=== PATIENT | male | born 1955 | race African-American/Black ===

== ENCOUNTER 2023-02-25 02:31 | Emergency (ER) | payer MEDICAID, MEDICARE ==
[2023-02-25] MEDS ORDERED: Acetaminophen 500 MG TAB ONE (03:00)
[2023-02-25] MEDS ORDERED: Metoclopramide 10 MG/10 ML UDCUP ONE (03:00)
[2023-02-25] MEDS ORDERED: Metoclopramide HCl 10 MG/2 ML VIAL ONE (03:01)
[2023-02-25 03:07] LABS: #Monocytes 0.2 thou/uL (0.11-0.59); #Neutrophils 8.7 thou/uL (1.40-6.50); %Basophils 0.1 % (0.0-1.0); %Lymphocytes 6.2 % (21.0-51.0); %Monocytes 2.1 % (0.0-10.0); %Neutrophils 91.2 % (42.0-75.0); Hematocrit 42.8 % (42.0-52.0); Hemoglobin 14.5 g/dL (14.0-18.0); Mean Corpuscular HGB CONC 33.9 g/dL (32.0-36.0); Mean Corpuscular Hemoglobin 33.7 pg (27.0-31.0); Mean Corpuscular Volume 99.5 fl (78.0-98.0); Mean Platelet Volume 9.2 fL (7.4-10.4); Platelet Count 290 10x3/uL (130-400); RBC Distribution Width 12.6 % (11.5-14.5); White Blood Cell (WBC) Count 9.5 10x3/uL (4.8-10.8)
[2023-02-25 03:43] LABS: SARS-CoV-2 NAA Rapid Test Not Detected (NotDetected)
[2023-02-25 04:01] LABS: Troponin I Less than 0.010 ng/mL (< 0.028)
[2023-02-25 04:03] LABS: Anion Gap 16 mmol/L (10-20); BUN (Urea Nitrogen) 15 mg/dL (8.4-25.7); Calc. Creatinine Clearance 0 mL/min (70-130); Calcium 9.4 mg/dL (7.6-10.4); Carbon Dioxide 22 mmol/L (23-31); Chloride 103 mmol/L (98-107); Estimated GFR 91; Glucose 211 mg/dL (80-115); Potassium 3.6 mmol/L (3.5-5.1); Sodium 137 mmol/L (136-145)
[2023-02-25 04:04] LABS: ALT (SGPT) 25 U/L (8-55); AST (SGOT) 18 U/L (5-34); Albumin 3.9 g/dL (3.4-4.8); Alkaline Phosphatase 58 U/L (40-110); Bilirubin, Total 0.5 mg/dL (0.2-1.2); Globulin 3.6 g/dL (2.4-3.5); Magnesium 2.2 mg/dL (1.6-2.6); Protein, Total 7.5 g/dL (5.8-8.1)
[2023-02-25] MEDS ORDERED: Ketorolac Tromethamine 30 MG/ML VIAL ONE (04:55)
[2023-02-25] MEDS ORDERED: Benzonatate 100 MG CAP ONE (06:17)
[2023-02-25 07:16] LABS: Lactic Acid 1.9 mmol/L (0.5-2.2)
== END 2023-02-25 07:19 | disposition home or self-care (01) ==
LOC: ERS 02:31
DX: J06.9 Acute upper respiratory infection, unspecified (principal); F17.210 Nicotine dependence, cigarettes, uncomplicated; Z20.822 Contact with and (suspected) exposure to COVID-19
CPT/HCPCS: 36415; 70450; 71045; 80053; 83605; 83735; 83880; 84484; 85025; 87040; 87804; 93005; 96361; 96365; 96375; J1885; J2765; U0002